=== PATIENT | male | born 1965 | race Caucasian/White ===

== ENCOUNTER → 2016-09-19 | Outpatient (CLI) | payer OTHER ==
[~2016-09-19] MED LIST: ATEN50TA8 PO
[2016-09-19 13:04] LABS: BLOOD UREA NITROGEN 13 mg/dl (7-18); BUN/CREATININE RATIO 12.1 (10-20); CALCIUM 8.9 mg/dl (8.5-10.1); CARBON DIOXIDE 25 mmol/L (21-32); CHLORIDE 106 mmol/L (98-107); CHOLESTEROL 169 mg/dl (0-200); GLUCOSE 95 mg/dl (70-99); POTASSIUM 4.1 mmol/L (3.5-5.1); SODIUM 140 mmol/L (136-145); TRIGLYCERIDES 108 mg/dl (0-150); VERY LOW DENSITY LIPOPROT CALC 22 mg/dl
[2016-09-19 13:09] LABS: CHOLESTEROL/HDL RATIO 3.8; HDL CHOLESTEROL 44 mg/dl; LDL CHOLESTEROL CALCULATED 103 mg/dl
== END | disposition home or self-care (01) ==
LOC: C.LABPBG 07:59
PROVIDERS: ATTEND Family Medicine
DX: E78.2 Mixed hyperlipidemia (principal); I10 Essential (primary) hypertension

== ENCOUNTER → 2017-04-07 | Outpatient (CLI) | payer OTHER ==
--- NOTE | 2017-04-07 09:33 | DIAGNOSTIC IMAGING REPORT ---
RIGHT HIP UNILATERAL 2 VIEWS, LEFT HIP UNILATERAL 2 VIEWS CLINICAL HISTORY: 52 years-old Male presenting with bilateral hip pain, no history of injury. TECHNIQUE: Frontal and frog-leg lateral views of the bilateral hips were obtained. COMPARISON: None. FINDINGS: Hip joints congruent. Joint space preserved. No acute fracture or malalignment. Minimal osteophytosis may be present. Regional soft tissues normal. IMPRESSION: No acute osseous injury of the bilateral hips. Electronically signed by: Oscar Calderon M.D. 04/07/2017 9:32 AM Dictated Date/Time: 04/07/2017 9:31 AM
== END | disposition home or self-care (01) ==
LOC: C.RAD 09:04
PROVIDERS: ATTEND Family Medicine
DX: M25.552 Pain in left hip (principal); M25.551 Pain in right hip

== ENCOUNTER → 2018-03-14 | Outpatient (CLI) | payer OTHER ==
[2018-03-14 07:54] LABS: BASO % 0.7 %; BASO ABS # 0.05 K/uL (0-0.2); EOS ABS # 0.29 K/uL (0-0.5); HEMATOCRIT 44.8 % (42-52); HEMOGLOBIN 15.7 g/dL (14.0-18.0); IG# 0.02 K/uL (0.00-0.02); LYMPH ABS # 1.67 K/uL (1.2-3.4); MEAN CELL VOLUME 82.5 fL (80-100); MEAN CORPUSCULAR HEMOGLOBIN 28.9 pg (25-34); MEAN PLATELET VOLUME 10.2 fL (7.4-10.4); MONO % 8.5 %; MONO ABS # 0.62 K/uL (0.11-0.59); NEUT % 63.5 %; NEUT ABS # 4.62 K/uL (1.4-6.5); PLATELET COUNT 199 K/uL (130-400); RED CELL DISTRIBUTION WIDTH SD 41.8 fL (36.4-46.3); WHITE BLOOD COUNT 7.27 K/uL (4.8-10.8)
[2018-03-14 08:30] LABS: ALBUMIN 3.7 gm/dl (3.4-5.0); ALKALINE PHOSPHATASE 95 U/L (45-117); ALT/SGPT 36 U/L (12-78); AST/SGOT 21 U/L (15-37); BLOOD UREA NITROGEN 18 mg/dl (7-18); CALCIUM 8.8 mg/dl (8.5-10.1); CARBON DIOXIDE 29 mmol/L (21-32); CHOLESTEROL 185 mg/dl (0-200); CREATININE 0.99 mg/dl (0.60-1.40); GLUCOSE 85 mg/dl (70-99); LDL CHOLESTEROL CALCULATED 117 mg/dl; POTASSIUM 4.4 mmol/L (3.5-5.1); SODIUM 138 mmol/L (136-145); TOTAL PROTEIN 7.9 gm/dl (6.4-8.2)
[2018-03-14 08:54] LABS: TESTOSTERONE,TOTAL 412.7 ng/dl; THYROXINE (T4) 7.5 mcg/dl (4.5-10.9)
== END | disposition home or self-care (01) ==
LOC: C.LAB 07:19
PROVIDERS: ATTEND Family Medicine
DX: M25.50 Pain in unspecified joint (principal); R53.83 Other fatigue; R63.4 Abnormal weight loss

== ENCOUNTER → 2018-03-28 | Outpatient (CLI) | payer OTHER ==
[2018-03-28 10:50] LABS: BASO % 0.2 %; BASO ABS # 0.02 K/uL (0-0.2); EOS % 0.7 %; EOS ABS # 0.09 K/uL (0-0.5); HEMATOCRIT 41.6 % (42-52); HEMOGLOBIN 14.3 g/dL (14.0-18.0); IG# 0.02 K/uL (0.00-0.02); LYMPH % 17.3 %; LYMPH ABS # 2.15 K/uL (1.2-3.4); MEAN CELL VOLUME 83.2 fL (80-100); MEAN CORPUSCULAR HEMOGLOBIN 28.6 pg (25-34); MEAN CORPUSCULAR HGB CONC 34.4 g/dl (32-36); MEAN PLATELET VOLUME 10.5 fL (7.4-10.4); MONO % 6.9 %; MONO ABS # 0.85 K/uL (0.11-0.59); NEUT % 74.7 %; NEUT ABS # 9.27 K/uL (1.4-6.5); PLATELET COUNT 237 K/uL (130-400); RED CELL DISTRIBUTION WIDTH CV 14.3 % (11.5-14.5); RED CELL DISTRIBUTION WIDTH SD 43.5 fL (36.4-46.3)
[2018-03-30 15:09] LABS: ANA SCREEN TC 249X NEGATIVE (NEGATIVE)
== END | disposition home or self-care (01) ==
LOC: C.LAB 10:26
PROVIDERS: ATTEND Family Medicine
DX: M25.50 Pain in unspecified joint (principal)